=== PATIENT | male | born 1995 | race Two or more races ===

== ENCOUNTER 2025-01-26 19:33 | Emergency (ER) | payer MEDICAID, SELFPAY ==
[2025-01-26 19:36] VITALS: BMI 34.1
[2025-01-26 19:40] VITALS: BP 129/83; PULSE 88; RESP 18; TEMP 36.6; O2SAT 97
--- NOTE | 2025-01-26 20:00 | PD.EDEYE ---
ED Eye Problem RME/HPI General Chief complaint: Eye Problems Stated complaint: somthing in L eye Time Seen by Provider: 01/26/25 19:59 Arrival date/time: 01/26/25 19:33 29M with no significant PMH presents to ED with 2 weeks of L eye irritation. Patient does welding/fencing. Patinent went to PCP last week where two small metal objects were removed from eye. Patient was put on some cream, but pharmacist told them to put the cream on the lower external eyelid area, apparently. So patient has been using it on the eye itself. Patient came back he has had 2 days of eye irritation. Patient states he can see normally and does not wear contacts. Limitations: no limitations Related Data Allergies Allergy/AdvReac Type Severity Reaction Status Date / Time apricot Allergy Verified 11/19/21 20:47 dudley Allergy Verified 11/19/21 20:47 Review of Systems Review of Systems Systems Reviewed: All systems reviewed, normal except as documented Constitutional Constitutional: Reports system reviewed and no additional complaints, except as documented, Denies fever(s) and Denies headache(s) Eyes Eyes: Reports as per HPI and Reports irritation ENT Ears, Nose, Mouth, and Throat: Denies disequilibrium and Denies headache(s) Cardiovascular Cardiovascular: Reports system reviewed and no additional complaints, except as documented, Denies chest pain and Denies dyspnea Respiratory Respiratory: Reports system reviewed and no additional complaints, except as documented, Denies cough and Denies dyspnea Gastrointestinal Gastrointestinal: Reports system reviewed and no additional complaints, except as documented, Denies abdominal pain, Denies nausea and Denies vomiting Neurologic Neurologic: Reports system reviewed and no additional complaints, except as documented, Denies confusion, Denies disequilibrium and Denies headache(s) Psychiatric Psychiatric: Denies confusion Past Medical History Social History SMOKING STATUS: Never smoker ED Exam General Limitations: Present no limitations General appearance: Present alert and in no apparent distress Head Head exam: Present atraumatic Eye Eye exam: Present PERRL and EOMI Expanded Eye Exam Sclera/Conjunctival: left: foreign body (rust ring; no FB) ENT ENT exam: Present normal exam, normal oropharynx and mucous membranes moist Neck Neck exam: Present normal inspection, full ROM and trachea midline Chest Chest inspection: Present normal inspection and symmetric chest wall rise Respiratory Respiratory exam: Present normal lung sounds bilaterally Cardiovascular Cardiovascular exam: Present regular rate, normal rhythm and normal heart sounds Abdominal Exam Abdominal exam: Present soft and normal bowel sounds Extremities Exam Extremities exam: Present normal inspection and full ROM Back Exam Back exam: Present normal inspection and full ROM Neurological Exam Neurological exam: Present alert, oriented X3 and CN II-XII intact Psychiatric Psychiatric exam: Present normal affect and normal mood Skin Skin exam: Present warm, dry, intact and normal color Course Quality Measures none Vital Signs Vital signs: Vital Signs Temperature 98 F 01/26/25 19:40 Pulse Rate 88 01/26/25 19:40 Respiratory Rate 18 01/26/25 19:40 Blood Pressure 129/83 01/26/25 19:40 Pulse Oximetry (%) 97 01/26/25 19:40 Oxygen Delivery Method Room Air 01/26/25 19:40 O2 at 97% on RA and WNLs Eye MDM Narrative MDM Narrative:: 29M with no significant PMH presents to ED with 2 weeks of L eye irritation. Patient does welding/fencing. Patinent went to PCP last week where two small metal objects were removed from eye. Patient was put on some cream, but pharmacist told them to put the cream on the lower external eyelid area, apparently. So patient has been using it on the eye itself. Patient came back he has had 2 days of eye irritation. Patient states he can see normally and does not wear contacts. Physical exam reveals L eye rust ring. No gross conjunctivitis or tearing. Normal pupil response and EOM. Patient is afebrile, calm, and alert. went home and brought cream, which was verified to be erythromycin ointment. Counseled to put it on the INNER lower eyelid or the eyeball itself. Patient data External records reviewed:: [facility] previous records Clinical information provided by:: patient Social determinants that could affect healthcare access:: none Patient has the following chronic illnesses:: none How is presenting disease/condition affected by chronic disease/condition?: no chronic disease Evaluation data The following diagnostics were reviewed and interpreted by me:: other (specify) (none) Lab and/or radiology exams considered but not ordered:: not ordered Interpretation Summary: n/a Medications / Prescriptions Medications or Prescriptions considered but not ordered:: not ordered Medication administrations:: n/a Consultations Consultation(s) initiated? (list below): No Diagnosis Eye Problem Differential Diagnosis: corneal abrasion, conjunctivitis, acute iritis, hyphema, periorbital cellulitis, subconjunctival hemorrhage, corneal ulcer, ruptured globe and other (rust ring of L eye) Most likely diagnosis given after review of the tests above:: rust ring of L eye Admission Indicated Admission indicated?: not indicated Admission Request Was there a request for admission?: No Disposition Plan Disposition Plan: Discharge Discharge Attestation Discharge Attestation: The patient and all family members were given an opportunity to ask questions and understood the discharge instructions. Discharge instructions specifically effects, indications for sooner follow up or return to the emergency department, and the expected course of current diagnosis. Patient condition: Stable Discharge Plan Plan Patient Disposition: HOME (Self Care) Discharge Disposition comment: Stable Problem List Clinical Impression: Corneal rust ring of left eye Patient/Caregiver Discharge Instructions Education Materials: How the Eye Works Additional Instructions: Please follow-up with PCP within 24-48 hours and return immediately if symptoms worsen. See eye doctor soon. Put cream on the eyeball itself or the INNER lower eyelid. Print Language: Slovak Stand Alone Forms: Patient Portal Info Letter ЮЛИЯ/AME Supervising Physician ЮЛИЯ/AME Supervising Physician: Dr. Norton
== END 2025-01-26 20:40 | disposition home or self-care (01) ==
LOC: SERX 20:35
PROVIDERS: Emergency Provider Emergency Medicine
DX: T15.02XA Foreign body in cornea, left eye, initial encounter (principal); W44.E9XA Other non-magnetic metal objects entering into or through a natural orifice, initial encounter
CPT/HCPCS: 99281